=== PATIENT | female | born 1965 | race Caucasian/White ===

== ENCOUNTER 2021-09-23 09:11 | Outpatient (CLI) | payer OTHER, SELFPAY ==
--- NOTE | ~2021-09-23 | US_ITS ---
EXAMINATION: US abdomen complete DATE: 09/23/2021 10:31 INDICATION: Cirrhosis of the liver. Ascites. TECHNIQUE: Multiple grayscale and Doppler ultrasound images of the abdomen were obtained. COMPARISON: CT abdomen and pelvis 03/12/2019 FINDINGS: The visualized portions of the head and body of pancreas are normal. The liver demonstrates coarsened echotexture and surface nodularity, consistent with cirrhosis. There are changes of cholec ystectomy. There is severe splenomegaly. The abdominal aorta is normal in caliber. The inferior vena cava is normal. The kidneys are normal in size. There is trace perisplenic ascites. IMPRESSION: 1. Cirrhosis of the liver with portal venous hypertension. 2. Trace perisplenic ascites. Reviewed, dictated and finalized at location B.
== END 2021-09-23 09:12 | disposition home or self-care (01) ==
DX: R18.8 Other ascites (principal)
CPT/HCPCS: 76700